=== PATIENT | female | born 1985 | race Two or more races ===

== ENCOUNTER 2016-12-24 16:25 | Emergency (ER) | payer MEDICAID ==
[~2016-12-24] VITALS: Ht 162.6 cm; Wt 72.0 kg
[2016-12-24] MEDS ORDERED: IBUPROFEN 600MG TABLET PO ONE (19:15)
[2016-12-24 22:35] VITALS: BP 129/80
== END 2016-12-24 23:05 | disposition home or self-care (01) ==
LOC: ER 16:30
DX: S16.1XXA Strain of muscle, fascia and tendon at neck level, initial encounter (principal); S20.219A Contusion of unspecified front wall of thorax, initial encounter; S20.312A Abrasion of left front wall of thorax, initial encounter; V89.2XXA Person injured in unspecified motor-vehicle accident, traffic, initial encounter; Y93.89 Activity, other specified; Y92.89 Other specified places as the place of occurrence of the external cause; Y99.8 Other external cause status
CPT/HCPCS: 71010; 72040; 81025; 99284